=== PATIENT | male | born 1995 | race Caucasian/White ===

== ENCOUNTER 2016-09-21 22:11 | Emergency (ER) | payer OTHER ==
[2016-09-21 22:21] VITALS: TEMP 98.2
--- NOTE | 2016-09-21 22:34 | ED.PDOC ---
History of Present Illness - General Chief Complaint: Laceration Stated Complaint: laceration to right forehead Time Seen by Provider: 09/21/16 22:23 Source: patient, RN notes reviewed, Vital Signs reviewed Exam Limitations: no limitations - History of Present Illness Initial Comments: Patient [place] working out in the shelter and he passed out hitting his right forehead. LOC was <1 minute. Has a PRATER and a knot with laceration on his R forehead. Denies neck pain or any other injury. Timing/Duration: momentarily Severity: moderate Improving Factors: nothing Worsening Factors: nothing Associated Symptoms: syncope Allergies/Adverse Reactions: Allergies NO KNOWN ALLERGY Allergy (Verified 09/21/16 22:21) Home Medications: Ambulatory Orders NK [NK] 09/21/16 Review of Systems - Review of Systems Constitutional: States: no symptoms reported EENTM: States: see HPI. Denies: blurred vision, double vision Respiratory: States: no symptoms reported Cardiology: States: syncope. Denies: chest pain Gastrointestinal/Abdominal: States: no symptoms reported Skin: States: see HPI Neurological: States: headache. Denies: numbness, paresthesia, tingling, weakness All other Systems: No Change from Baseline Past Medical History (General) - Patient Medical History Hx Seizures: No Hx Stroke: No Hx Dementia: No Hx Asthma: No Hx of COPD: No Hx Cardiac Disorders: No Hx Congestive Heart Failure: No Hx Pacemaker: No Hx Hypertension: No Hx Thyroid Disease: No Hx Diabetes: No Hx Gastroesophageal Reflux: No Hx Renal Disease: No Hx Cancer: No Hx of HIV: No Hx Hepatitis C: No Hx MRSA: No Surgical History: no surgical history - Vaccination History Hx Tetanus, Diphtheria Vaccination: Yes Hx Influenza Vaccination: No Hx Pneumococcal Vaccination: No Immunizations Up to Date: Yes - Social History Hx Chewing Tobacco Use: No Hx Alcohol Use: No Hx Substance Use: Yes - weed Hx Substance Use Treatment: No Hx Depression: No Feels Threatened In Home Enviroment: No Feels Threatened In a Relationship: No Hx Physical Abuse: No Hx Emotional Abuse: No Hx Suspected Abuse: No Family Medical History - Family History Mother Family History: No Known Living Status: Still Living Physical Exam - Physical Exam General Appearance: Alert, Comfortable, No apparent distress, Well Developed, Well Groomed, Well Hydrated, Well Nourished Eye Exam: bilateral normal Ears, Nose, Throat: hearing grossly normal, normal ENT inspection, normal pharynx Neck: non-tender, full range of motion, supple, normal inspection Respiratory: lungs clear, normal breath sounds, no respiratory distress, no accessory muscle use Cardiovascular/Chest: regular rate, rhythm, no gallop, no murmur 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, no motor/sensory deficits, alert, normal mood/affect, oriented x 3 Skin Exam: normal color - except swelling with 2cm vertical laceration on R forehead Comments: Vital Signs 09/21/16 22:11 Temperature 98.2 F Pulse Rate [ 64 monitor] Respiratory 18 Rate Blood Pressure 139/87 [Left Arm] O2 Sat by Pulse 99 Oximetry Progress - EKG/XRAY/CT CT Ordered: Yes - No acute intracranial injury or fracture per Radiologist Procedures - Laceration/Wound Repair Right Frontal Wound Length (cm): 2 Wound's Depth, Shape: superficial, linear Wound Explored: no foreign body removed Irrigated w/ Saline (cc's): 100 Betadine Prep?: No - cleaned with Hibiclens Volume Anesthetic (cc's): 0 Wound Debrided: minimal Wound Repaired With: dermabond Number of Sutures: 0 Layer Closure?: No Sterile Dressing Applied?: No Splint Applied?: No Sling Applied?: No Departure - Departure Clinical Impression: Forehead contusion Qualifiers: Encounter type: initial encounter Qualified Code(s): S00.83XA - Contusion of other part of head, initial encounter Laceration of forehead without complication Qualifiers: Encounter type: initial encounter Qualified Code(s): S01.81XA - Laceration without foreign body of other part of head, initial encounter Time of Disposition: 23:06 Disposition: Discharge to Home or Self Care Condition: Good Departure Forms: ED Discharge - Pt. Copy, Patient Portal Self Enrollment Instructions: DI for Laceration Repair With Dermabond Diet: resume usual diet Activity: increase activity as tolerated Referrals: Donte Oakley MD [Primary Care Provider] - 1-2 Weeks Home Medications: Ambulatory Orders NK [NK] 09/21/16
[2016-09-21] MEDS ORDERED: NEOMYCIN-BACITRACIN-POLYMYXIN 0.9 GM UD TOP ONE (22:50)
--- NOTE | 2016-09-21 22:57 | CT ---
PROCEDURE: Head CLINICAL HISTORY: 21 years Male Head injury s/p syncopal episode COMPARISON: None. TECHNIQUE: Contiguous axial images obtained through the brain without IV contrast. This exam was performed according to our department optimization program which includes automated exposure control, adjustment of the mA and/or kv according to patient size and/or use of iterative reconstruction technique. FINDINGS: The ventricles and sulci are within normal limits for the patient's age. No midline shift or mass effect. No masses identified. No acute intracranial hemorrhage. No fluid or significant mucosal thickening in the visualized paranasal sinuses. No depressed calvarial fractures. IMPRESSION: No acute intracranial abnormality is identified. Soft tissue swelling and small laceration over the right forehead Electronically signed by: Yokasta Luis 09/21/2016 10:55 PM CDT
[2016-09-21 23:22] VITALS: BP 133/80; O2SAT 100
== END 2016-09-21 23:22 | disposition home or self-care (01) ==
LOC: ER 22:11
DX: S01.81XA Laceration without foreign body of other part of head, initial encounter (principal); S00.83XA Contusion of other part of head, initial encounter; X58.XXXA Exposure to other specified factors, initial encounter; Y92.149 Unspecified place in prison as the place of occurrence of the external cause

== ENCOUNTER → 2019-12-29 | Outpatient (CLI) | payer OTHER | LOC: YCFC.O 10:23 | PROVIDERS: ATTEND Nurse Practitioner | DX: Z20.828 Contact with and (suspected) exposure to other viral communicable diseases (principal) ==